=== PATIENT | male | born 1950 | race Caucasian/White ===

== ENCOUNTER 2025-03-07 20:02 | Observation (INO) ==
[2025-03-07 20:58] LABS: BASOPHILS % (AUTO) 0.3 %; EOSINOPHILS # (AUTO) 0.1 10^3/uL (0.0-0.7); EOSINOPHILS % (AUTO) 1.1 %; HGB - HEMOGLOBIN 11.3 g/dL (14.0-18.0); LYMPHOCYTES # (AUTO) 1.1 10^3/uL (1.5-3.5); LYMPHOCYTES % (AUTO) 14.3 %; MEAN CORPUSCULAR HGB CONC 34.2 g/dL (32.0-36.0); MEAN CORPUSCULAR VOLUME 93.5 fL (80.0-94.0); MEAN PLATELET VOLUME 10.2 fL (7.4-11.4); MONOCYTES # (AUTO) 0.6 10^3/uL (0.0-1.0); MONOCYTES % (AUTO) 7.4 %; NEUTROPHILS % (AUTO) 76.5 %; PLT - PLATELET COUNT 149 10^3/uL (130-450); RED BLOOD COUNT 3.53 10^6/uL (4.70-6.10); RED CELL DISTRIBUTION WIDTH 13.6 % (12.0-15.0); WHITE BLOOD COUNT 7.9 x10^3/uL (4.8-10.8)
[2025-03-07] MEDS: SODIUM CHLORIDE 0.9% 1,000 ML IV STA (21:01)
--- NOTE | 2025-03-07 21:01 | XRAY Report ---
PROCEDURE: XR Chest 1V INDICATIONS: chest pain TECHNIQUE: One view of the chest was acquired. COMPARISON: None. FINDINGS: Surgical changes and devices: None. Lungs and pleura: There is mild pulmonary vascular congestion. Blunting of left costophrenic angle is seen suggestive of small left pleural effusion with left basilar small infiltrates/atelectasis. Righ t lung is clear. No pneumothorax. Mediastinum: Mediastinal contours appear normal. Heart size is enlarged. Bones and chest wall: No suspicious bony lesions. Overlying soft tissues appear unremarkable. IMPRESSION: Cardiomegaly and mild congestion with small left pleural effusion and left basilar small infiltrate versus atelectasis. No pneumothorax. Reviewed by: Naseem Macdonald MD on 03/07/2025 9:00 PM PDT Approved by: Naseem Macdonald MD on 03/07/2025 9:00 PM PDT Station ID: [id number]
[2025-03-07 21:15] LABS: ALBUMIN 3.7 g/dL (3.2-5.5); ALBUMIN/GLOBULIN RATIO 1.9 (1.0-2.2); ALKALINE PHOSPHATASE 36 IU/L (42-121); ALT ALANINE AMINOTRANSFERASE 11 IU/L (10-60); AST ASPARTATE AMINOTRANSFERASE 17 IU/L (10-42); BILIRUBIN,TOTAL 1.2 mg/dL (0.2-1.0); BUN - BLOOD UREA NITROGEN 14 mg/dL (6-20); CARBON DIOXIDE - CO2 28 mmol/L (21-32); CHLORIDE 108 mmol/L (101-111); CREATININE 0.8 mg/dL (0.6-1.3); ETOH - ETHANOL < 10.0 mg/dL; GFR - MDRD 94 (>89); GLUCOSE 130 mg/dL (74-104); LIPASE 20 U/L (11-82); POTASSIUM 2.6 mmol/L (3.5-4.5); SODIUM 143 mmol/L (135-145); TOTAL PROTEIN 5.7 g/dL (6.4-8.9)
[2025-03-07 21:17] LABS: MAGNESIUM 1.7 mg/dL (1.7-2.3)
[2025-03-07] MEDS: ACETAMINOPHEN 325 MG TABLET PO STA (22:27)
[2025-03-07] MEDS: cefTRIAXone 1 GM VIAL IVP STA (22:32)
[2025-03-07] MEDS: AZITHROMYCIN INJ 500 MG in SODIUM CHLORIDE 0.9% 250 ML IV STA (22:33)
[2025-03-07] MEDS: POTASSIUM CHLORIDE 20 MEQ/15 ML UDC PO SCH (22:46)
[2025-03-08] MEDS: MAGNESIUM OXIDE 400 MG TABLET PO ONE (00:16)
[2025-03-08 01:30] LABS: B. PARAPERTUSSIS- RESP PCR PAN NOT DETECTED; B. PERTUSSIS- RESP PCR PANEL NOT DETECTED; C. PNEUMONIAE- RESP PCR PANEL NOT DETECTED; CORONAVIRUS 229E-RESP PCR NOT DETECTED; CORONAVIRUS HKU1-RESP PCR NOT DETECTED; CORONAVIRUS NL63-RESP PCR NOT DETECTED; CORONAVIRUS OC43-RESP PCR NOT DETECTED; HUMAN METAPNEUMOVIRUS NOT DETECTED; INFLUENZA A- RESP PCR PANEL NOT DETECTED; INFLUENZA B - RESP PCR PANEL NOT DETECTED; M. PNEUMONIAE- RESP PCR PANEL NOT DETECTED; PARAINFLUENZA VIRUS 1 NOT DETECTED; PARAINFLUENZA VIRUS 2 NOT DETECTED; PARAINFLUENZA VIRUS 4 NOT DETECTED; RHINOVIRUS/ENTEROVIRUS NOT DETECTED; RSV- RESP PCR PANEL NOT DETECTED; SARS-CoV-2 -RESP PCR PANEL NOT DETECTED
--- NOTE | 2025-03-08 02:02 | ED Physician Documentation ---
History of Present Illness Stated complaint Stated Complaint: WEAKNESS, FEVER, HX CA Chief complaint Chief Complaint: General Additonal information Additional information: 74-year-old male with known history of prostate cancer presents fever, fatigue. Past medical significant for prostate cancer, hypertension for which she takes carvedilol, hydrochlorothiazide, hypothyroidism. Reports fatigue, fever at home. Reports nonproductive cough. Denies headache, neck stiffness, blurred vision, double vision, chest pain, abdominal pain, nausea, vomiting, diarrhea, constipation. Yomi Coma Scale Assess Eye opening: Spontaneous Verbal response: Oriented Motor response: Obeys Commands Total score: 15 Review of Systems Status of ROS: 10 or more systems reviewed and unremarkable except as noted in history and below Constitutional Reports: Fatigue and Fever Respiratory Reports: Cough Endocrine Reports: Fatigue Meds/Allgy Allergies Allergies Allergy/AdvReac Type Severity Reaction Status Date / Time No Known Drug Allergies Allergy Verified 03/07/25 20:09 PFSH Active Problems All Active Problems (Updated 03/08/25 @ 02:28 by Omid Rojas MD) PNA (pneumonia) (Acute) Hypokalemia (Acute) Social History Social History Relationship: Do you feel safe in your home environment?: Yes Suffered physical, verbal, emotional, or financial abuse?: No POLST Patient has POLST: No Exam Exam Vital Signs: Vital Signs x48h Temp Pulse Resp BP Pulse Ox O2 Flow Rate 03/08/25 00:20 37 C 77 22 105/50 L 100 2 03/07/25 23:45 37 C 03/07/25 23:00 37.5 C 78 22 115/67 99 2 03/07/25 21:56 38 C H 03/07/25 21:41 78 22 146/64 H 100 2 03/07/25 20:09 36.5 C 62 16 128/67 92 Constitutional Somewhat ill-appearing, no acute distress. 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, no movement abnormality noted, no focal motor deficit noted and no sensory deficits noted Psychiatry mental status grossly normal Skin skin color normal Results Vitals Vitals: Vital Signs - 24 hr 03/07/25 20:09 03/07/25 21:41 03/07/25 21:56 Temperature 36.5 C 38 C H Temperature Source Oral Tympanic Pulse Rate 62 78 Respiratory Rate 16 22 Blood Pressure 128/67 146/64 H O2 Saturation 92 100 O2 Source Room air Nasal cannula If not protocol: Oxygen Flow, liters/minute 2 Pain Intensity 0 0 03/07/25 22:27 03/07/25 23:00 03/07/25 23:45 Temperature 37.5 C 37 C Temperature Source Tympanic Pulse Rate 78 Respiratory Rate 22 Blood Pressure 115/67 O2 Saturation 99 O2 Source Nasal cannula If not protocol: Oxygen Flow, liters/minute 2 Pain Intensity 2 0 03/08/25 00:20 Temperature 37 C Temperature Source Tympanic Pulse Rate 77 Respiratory Rate 22 Blood Pressure 105/50 L O2 Saturation 100 O2 Source Nasal cannula If not protocol: Oxygen Flow, liters/minute 2 Pain Intensity Oxygen O2 Source Nasal cannula EKG (time done) 2034: EKG releavant findings:: EKG personally interpreted by author of this note. Relevant findings are: 64 rate with sinus rhythm. Right bundle branch block morphology. Left axis deviation. No concordant ST segment elevations, concordant ST segment depressions or excessive discordance in any lead.No previous EKG available for comparison. Labs Labs: Laboratory Tests 03/07/25 03/08/25 03/08/25 20:39 00:25 01:30 WBC 7.9 RBC 3.53 L Hgb 11.3 L Hct 33.0 L MCV 93.5 MCH 32.0 H MCHC 34.2 RDW 13.6 Plt Count 149 MPV 10.2 Neut # (Auto) 6.0 Lymph # (Auto) 1.1 L Navarro # (Auto) 0.6 Eos # (Auto) 0.1 Baso # (Auto) 0.0 Absolute Nucleated RBC 0.00 Nucleated RBC % 0.0 Sodium 143 Potassium 2.6 L 2.5 L* Chloride 108 Carbon Dioxide 28 Anion Gap 7.0 BUN 14 Creatinine 0.8 Estimated GFR (MDRD) 94 Glucose 130 H Calcium 8.0 L Magnesium 1.7 Total Bilirubin 1.2 H AST 17 ALT 11 Alkaline Phosphatase 36 L Troponin I High Sens 19.0 Total Protein 5.7 L Albumin 3.7 Globulin 2.0 L Albumin/Globulin Ratio 1.9 Lipase 20 Urine Color Urine Clarity Urine pH Ur Specific Poth Urine Protein Urine Glucose (UA) Urine Ketones Urine Occult Blood Urine Nitrite Urine Bilirubin Urine Urobilinogen Ur Leukocyte Esterase Urine RBC Urine WBC Ur Squamous Epith Cells Urine Crystals Urine Bacteria Ur Microscopic Review Urine Culture Comments Nasal Adenovirus (PCR) NOT DETECTED Nasal B. parapertussis DNA (PCR) NOT DETECTED Nasal Coronavir 229E PCR NOT DETECTED Nasal Coronavir HKU1 PCR NOT DETECTED Nasal Coronavir NL63 PCR NOT DETECTED Nasal Coronavir OC43 PCR NOT DETECTED Nasal Enterovir/Rhinovir PCR NOT DETECTED Nasal Influenza B PCR NOT DETECTED Nasal Influenza A PCR NOT DETECTED Nasal Parainfluen 1 PCR NOT DETECTED Nasal Parainfluen 2 PCR NOT DETECTED Nasal Parainfluen 3 PCR NOT DETECTED Nasal Parainfluen 4 PCR NOT DETECTED Nasal RSV (PCR) NOT DETECTED Nasal B.pertussis DNA PCR NOT DETECTED Nasal C.pneumoniae (PCR) NOT DETECTED Sharif Human Metapneumo PCR NOT DETECTED Nasal M.pneumoniae (PCR) NOT DETECTED Nasal SARS-CoV-2 (PCR) NOT DETECTED Ethyl Alcohol < 10.0 03/08/25 02:34 WBC RBC Hgb Hct MCV MCH MCHC RDW Plt Count MPV Neut # (Auto) Lymph # (Auto) Navarro # (Auto) Eos # (Auto) Baso # (Auto) Absolute Nucleated RBC Nucleated RBC % Sodium Potassium Chloride Carbon Dioxide Anion Gap BUN Creatinine Estimated GFR (MDRD) Glucose Calcium Magnesium Total Bilirubin AST ALT Alkaline Phosphatase Troponin I High Sens Total Protein Albumin Globulin Albumin/Globulin Ratio Lipase Urine Color YELLOW Urine Clarity CLEAR Urine pH 6.0 Ur Specific Poth >=1.030 H Urine Protein 30 H Urine Glucose (UA) NEGATIVE Urine Ketones 15 H Urine Occult Blood MODERATE H Urine Nitrite NEGATIVE Urine Bilirubin NEGATIVE Urine Urobilinogen 2 H Ur Leukocyte Esterase NEGATIVE Urine RBC 11-25 H Urine WBC 0-3 Ur Squamous Epith Cells RARE Squamous Urine Crystals 3-5 Calcium Oxalate Urine Bacteria Rare Ur Microscopic Review INDICATED Urine Culture Comments NOT INDICATED Nasal Adenovirus (PCR) Nasal B. parapertussis DNA (PCR) Nasal Coronavir 229E PCR Nasal Coronavir HKU1 PCR Nasal Coronavir NL63 PCR Nasal Coronavir OC43 PCR Nasal Enterovir/Rhinovir PCR Nasal Influenza B PCR Nasal Influenza A PCR Nasal Parainfluen 1 PCR Nasal Parainfluen 2 PCR Nasal Parainfluen 3 PCR Nasal Parainfluen 4 PCR Nasal RSV (PCR) Nasal B.pertussis DNA PCR Nasal C.pneumoniae (PCR) Sharif Human Metapneumo PCR Nasal M.pneumoniae (PCR) Nasal SARS-CoV-2 (PCR) Ethyl Alcohol PD Medical Decision Making ED course Complexity details: reviewed results, re-evaluated patient, considered differential and d/w patient ED course: 74-year-old male presents chief complaint fever, fatigue. This is a Setting of known prostate cancer, hypothyroidism, hypertension on carvedilol and hydrochlorothiazide. Afebrile, hemodynamically stable on arrival. Somewhat ill-appearing on arrival. Clear aeration all lung oliver, benign abdominal exam. Initial labs did not demonstrate significant leukocytosis, hepatic or renal insufficiency but did have a significant hypokalemia. Patient denied any history nausea, vomiting or other history that would account for insensible fluid or electrolyte loss. While in the emergency department he did develop a fever and was given dose Tylenol. Chest x-ray with likely area infiltrate. He does endorse for nonproductive cough. He is given Rocephin, azithromycin. He is briefly placed on oxygen however this is easily titrated off. He is given oral potassium and magnesium for repletion. He is monitored carefully on telemetry. He passes an ambulatory trial. However repeat measurement of his potassium shows downtrend with potassium now 2.5. I have ordered for additional oral and IV potassium and IV magnesium. Care discussed with hospitalist service who graciously agreed to hospitalize for further evaluation and treatment. Discharge Plan Discharge Patient Disposition: [facility] DC/Xfer Clinical Impression: Hypokalemia, PNA (pneumonia) Print Language: Togolese
[2025-03-08] MEDS: POTASSIUM CHLORIDE 20 MEQ/15 ML UDC PO ONE (02:38)
[2025-03-08] MEDS: MAGNESIUM SULFATE 2 GRAM 2 GM/50 ML BAG IV ONE (02:39)
[2025-03-08] MEDS: POTASSIUM CHLORIDE INJ 40 MEQ in SODIUM CHLORIDE 0.9% 500 ML IV ONE (02:40)
[2025-03-08] MEDS: POTASSIUM CHLOR 10 MEQ/100 ML 10 MEQ/100 ML BAG IV SCH (02:41)
[2025-03-08 02:43] LABS: BILIRUBIN,URINE NEGATIVE (NEGATIVE); GLUCOSE, URINE (UA) NEGATIVE (NEGATIVE); KETONES,URINE (UA) 15 mg/dL (NEGATIVE); LEUKOCYTE ESTERASE, URINE NEGATIVE (NEGATIVE); NITRITE,URINE NEGATIVE (NEGATIVE); OCCULT BLOOD,URINE MODERATE (NEGATIVE); PROTEIN,URINE 30 mg/dL (NEGATIVE); UROBILINOGEN,URINE 2 E.U./dL (NORMAL)
[2025-03-08 02:44] LABS: CLARITY,URINE CLEAR (CLEAR)
[2025-03-08 02:51] LABS: BACTERIA,URINE Rare /HPF (None Seen); SQUAMOUS EPITHELIAL CELL,UR RARE Squamous (<= Few); WBC,URINE 0-3 /HPF (0-3)
[2025-03-08 02:52] LABS: CRYSTALS,URINE 3-5 Calcium Oxalate /LPF
[2025-03-08 02:53] LABS: AMPHETAMINE SCREEN,URINE NEGATIVE (NEGATIVE); BARBITURATE SCREEN,UR NEGATIVE (NEGATIVE); BENZODIAZEPINES SCREEN, URINE NEGATIVE (NEGATIVE); BUPRENORPHINE SCREEN, URINE NEGATIVE (NEGATIVE); COCAINE SCREEN URINE NEGATIVE (NEGATIVE); METHADONE SCREEN, URINE NEGATIVE (NEGATIVE); METHAMPHETAMINES SCREEN, URINE NEGATIVE (NEGATIVE); OPIATE SCREEN, URINE NEGATIVE (NEGATIVE); OXYCODONE SCREEN, URINE NEGATIVE (NEGATIVE); THC CANNABINOID SCREEN, URINE NEGATIVE (NEGATIVE); TRICYCLIC ANTIDEPRESSANT,URINE NEGATIVE (NEGATIVE)
[2025-03-08] MEDS ORDERED: SODIUM CHLORIDE FLUSH 0.9% 10 ML SYRINGE IVP PRN (03:35)
[2025-03-08] MEDS ORDERED: ONDANSETRON 4 MG/2 ML VIAL IVP PRN (03:35)
[2025-03-08] MEDS ORDERED: ACETAMINOPHEN 325 MG TABLET PO PRN (03:35)
--- NOTE | 2025-03-08 04:09 | HISTORY & PHYSICAL EXAMINATION ---
Chief Complaint Chief Complaint Chief Complaint: fatigue, fever History of Present Illness Admitted From Admitted From:: home History Obtained From Exam Limitations: telemedicine, technical difficulties with audio required use of chat box History of Present Illness HPI Comment/Other: Mr Perez is a 74 yo M with history of HTN, hypothyroidism, prostate cancer. Presents to the ER with complaints of fatigue and fever, onset of symptoms yesterday. Reports dry cough, denies sputum production. Denies nausea, vomiting. Denies sick contacts. Patient was briefly on supplemental O2 while in ER however this has since been weaned off. CXR shows left basilar infiiltrate, treated with IV antibiotics. Tm 38 in ER, treated with Tylenol. Review of Systems Status of ROS: 10 or more systems reviewed and unremarkable except as noted in history and below Constitutional Reports: Fatigue, Fever, Malaise, Weakness and Poor appetite Respiratory Reports: Cough; Denies: Sputum production or Wheezing Gastrointestinal Denies: Nausea or Vomiting Integumentary/Breast Denies: Rash or Itching Endocrine Reports: Fatigue Allergic/Immunologic Denies: Wheezing PFSH Active Problems All Active Problems (Updated 03/08/25 @ 02:28 by Omid Rojas MD) PNA (pneumonia) (Acute) Hypokalemia (Acute) Social History Social History Relationship: Do you feel safe in your home environment?: Yes Suffered physical, verbal, emotional, or financial abuse?: No POLST Patient has POLST: No Meds/Allgy Allergies Allergies Allergy/AdvReac Type Severity Reaction Status Date / Time No Known Drug Allergies Allergy Verified 03/07/25 20:09 Exam Exam Vital Signs: Vital Signs x48h Temp Pulse Resp BP Pulse Ox O2 Flow Rate 03/08/25 02:00 36.7 C 70 20 129/73 100 03/08/25 01:00 37.1 C 78 20 103/63 100 03/08/25 00:20 37 C 77 22 105/50 L 100 2 03/07/25 23:45 37 C 03/07/25 23:00 37.5 C 78 22 115/67 99 2 03/07/25 21:56 38 C H 03/07/25 21:41 78 22 146/64 H 100 2 03/07/25 20:09 36.5 C 62 16 128/67 92 Constitutional normal general appearance, no apparent distress, average body habitus, no limitations and alert HENMT normocephalic and head/scalp atraumatic Chest inspection of chest normal Respiratory normal respiratory effort Extremities normal to inspection Psychiatry mental status grossly normal, oriented x3, thought process normal and cooperative Skin skin color normal Conclusion/Plan Lab Results Lab results reviewed: Yes 03/07/25 20:39 03/08/25 01:30 Diagnostic Imaging Results Diagnostic Imaging Results Comments: CXR: IMPRESSION: Cardiomegaly and mild congestion with small left pleural effusion and left basilar small infiltrate versus atelectasis. No pneumothorax. Other Other Results/Comments: Assessment/Plan: Community acquired pneumonia -Left basilar infiltrate on CXR -Patient presents with fever, cough -O2 sats stable on RA -No elevated leukocytosis, normal respiratory effort at rest -Continue azithromycin/ceftriaxone - consider switch to PO and dc home pending clinical course -Supportive care, Mucinex, anti-tussive PRN -Admit for observation Hypokalemia -K supplementation ordered in ER - repeat labs ordered -Mag 1.7, received IV mag in ER -Trend labs Continue home medications pending med rec verification. DVT ppx Lovenox Full code Telemedicine Consult Details Provider Location & Consult Time List names and roles of persons who participated in consult:: patient, RN, MD Telemedicine provider location:: [place]
[2025-03-08] MEDS ORDERED: BENZONATATE 100 MG CAPSULE PO PRN (04:50)
[2025-03-08 07:22] LABS: CALCIUM 7.7 mg/dL (8.5-10.3); CREATININE 0.9 mg/dL (0.6-1.3); POTASSIUM 3.1 mmol/L (3.5-4.5)
[2025-03-08] MEDS: guaiFENesin 600 MG TABLET PO SCH (09:31)
[2025-03-08] MEDS: POTASSIUM CHLORIDE 20 MEQ TABLET PO ONE (09:31)
[2025-03-08] MEDS: ENOXAPARIN 40 MG/0.4 ML SYRINGE SUBQ SCH (09:31)
[2025-03-08] MEDS: SODIUM CHLORIDE FLUSH 0.9% 10 ML SYRINGE IVP SCH (09:32)
--- NOTE | 2025-03-08 12:47 | PHARMACY PROGRESS NOTE ---
Best Possible Medication History Admit Date and Time: 03/08/25 0335 Home Medications Medication Instructions Recorded Confirmed Type abiraterone 250 mg tablet 1,000 mg PO DAILY 03/08/25 03/08/25 History allopurinol 100 mg tablet 300 mg PO DAILY 03/08/25 03/08/25 History apixaban 5 mg tablet 5 mg PO BID 03/08/25 03/08/25 History carvedilol 12.5 mg tablet 12.5 mg PO BID 03/08/25 03/08/25 History cholecalciferol (vitamin D3) 25 25 mcg PO DAILY 03/08/25 03/08/25 History mcg (1,000 unit) capsule hydrochlorothiazide 12.5 mg tablet 12.5 mg PO DAILY 03/08/25 03/08/25 History levothyroxine 50 mcg tablet 50 mcg PO DAILY 03/08/25 03/08/25 History metformin 500 mg tablet,extended 500 mg PO DAILY 03/08/25 03/08/25 History release 24 hr cznpybqs-pn-fvyog 300 mcg-K 60 1 tab PO DAILY 03/08/25 03/08/25 History mcg-lycop 600 mcg-lutein 300 mcg tablet (Centrum Silver Men) omega 0-icd-hgt-fish oil 1,200 mg 1 cap PO DAILY 03/08/25 03/08/25 History (144 mg-216 mg) capsule (Fish Oil) prednisone 5 mg tablet 5 mg PO DAILY 03/08/25 03/08/25 History simvastatin 10 mg tablet 10 mg PO DAILY 03/08/25 03/08/25 History Processed by: Pharmacy Medications reviewed in ED?: No Medication History completed: Yes Patient Interview: Completed Secondary Source(s): Insurance records [facility] Statement: Per [facility]. As the person ultimately responsible for medication therapy, providers are able to order a medication from an existing home medication list in [facility] via the "Reconcile Routine" prior to Confirmation of that medication by ground crewman mission support. Such practice is discouraged except when the physician, in their clinical judgment, deems that a medical need exists for a medication without regard to previous use.
[2025-03-08] MEDS: metFORMIN 500 MG TABLET PO SCH (17:44)
[2025-03-08 17:49] VITALS: BP 137/64; TEMP 97.3; O2SAT 94
[2025-03-08] MEDS ORDERED: AZITHROMYCIN 250 MG TABLET PO SCH (19:00)
[2025-03-08] MEDS ORDERED: cefTRIAXone 1 GM in SODIUM CHLORIDE 0.9% MINIBAG 100 ML IV SCH (20:00)
[2025-03-08] MEDS ORDERED: PRAVASTATIN 10 MG TABLET PO SCH (21:00)
[2025-03-08] MEDS ORDERED: carvediloL 12.5 MG TABLET PO SCH (21:00)
[2025-03-09] MEDS ORDERED: MULTIVITAMIN W/MINERALS TABLET PO SCH (08:00)
[2025-03-09] MEDS ORDERED: allopurinoL 100 MG TABLET PO SCH (09:00)
[2025-03-09] MEDS ORDERED: ABIRATERONE 250 MG PO SCH (09:00)
[2025-03-09] MEDS ORDERED: OMEGA-3 ACID ETHYL ESTERS 1 GM CAPSULE PO SCH (09:00)
[2025-03-09] MEDS ORDERED: CHOLECALCIFEROL 25 MCG TABLET PO SCH (09:00)
[2025-03-09] MEDS ORDERED: predniSONE 5 MG TABLET PO SCH (09:00)
[2025-03-09] MEDS ORDERED: LEVOTHYROXINE 25 MCG TABLET PO SCH (09:00)
--- NOTE | 2025-03-10 18:22 | Discharge Summary ---
Discharge Summary Admit Date: 03/08/25 Discharge Date: 03/08/25 Discharging Provider: Anatoly Daugherty MD DIAGNOSES Admission Diagnoses: 1. community acquired bacterial pneumonia 2. hypokalemia Discharge Diagnoses with Status of Each Condition: 1. community acquired bacterial pneumonia 2. hypokalemia 3. HTN 4. stage 4 prostate cancer 5. hypothyroidism 6. afib HPI History of Present Illness: 74 yo M with history of HTN, hypothyroidism, prostate cancer. Presents to the ER with complaints of fatigue and fever, onset of symptoms yesterday. Reports dry cough, denies sputum production. Denies nausea, vomiting. Denies sick contacts. Patient was briefly on supplemental O2 while in ER however this has since been weaned off. CXR shows left basilar infiiltrate, treated with IV antibiotics. Tm 38 in ER, treated with Tylenol. HOSPITAL COURSE Hospital Course: 1. community acquired bacterial pneumonia: CXR revealed L basilar infiltrate. He had a normal wbc of 7.9, not hypoxic. The pt was treated with ceftriaxone and azithromycin. His symptoms improved quickly over first day of admission. He was able to tolerate po intake and walked without problems. Engergy and fatigue improved. The pt was discharged to complete a 5 day course of cefpodoxime and 3 day course of azithromcyin. 2. hypokalemia: K 2.5 on arrival. Likely due to poor po intake and vomiting. HCTZ also contributing. He was given KCl replacement and repeat value was 3.1. Expect potassium will continue to normalize with improved po intake. He was prescribed an oral potassium supplement for 3 days on discharge. Stopped HCTZ and started amlodipine. Would repeat BMP in 5-7 days to check potassium. 3. HTN: As noted above, HCTZ was stopped due to severe hypokalemia and pt was started on amlodipine. He was ontinued on his home carvedilol. 4. stage 4 prostate cancer: The pt is currently undergoing treatment with lupron and zometa q 3 months, daily abiraterone and prednisone. I discussed the case with his oncologist, Dr. Roa at [facility]. The pt received an infusion with his scheduled lupron and zometa the day prior to onset of symptoms. Dr. Roa does not believe these medications contributed to his acute illness. Updated at bedside on day of discharge. They will have close f/u with Dr. Roa and with their PMD in [place]. ALLERGIES Allergies Allergy/AdvReac Type Severity Reaction Status Date / Time No Known Drug Allergies Allergy Verified 03/07/25 20:09 MEDICATIONS Ambulatory Orders Medication Instructions Recorded Confirmed abiraterone 250 mg tablet 1,000 mg PO DAILY 03/08/25 03/08/25 allopurinol 100 mg tablet 300 mg PO DAILY 03/08/25 03/08/25 amlodipine 5 mg tablet 5 mg PO DAILY #30 tabs 03/08/25 apixaban 5 mg tablet 5 mg PO BID 03/08/25 03/08/25 azithromycin 250 mg tablet 500 mg (2 x 250 mg) PO DAILY #2 03/08/25 tabs carvedilol 12.5 mg tablet 12.5 mg PO BID 03/08/25 03/08/25 cefpodoxime 200 mg tablet 200 mg PO BID 4 days #8 tabs 03/08/25 cholecalciferol (vitamin D3) 25 25 mcg PO DAILY 03/08/25 03/08/25 mcg (1,000 unit) capsule levothyroxine 50 mcg tablet 50 mcg PO DAILY 03/08/25 03/08/25 metformin 500 mg tablet,extended 500 mg PO DAILY 03/08/25 03/08/25 release 24 hr qemgzhcp-so-exihp 300 mcg-K 60 1 tab PO DAILY 03/08/25 03/08/25 mcg-lycop 600 mcg-lutein 300 mcg tablet (Centrum Silver Men) omega 1-abt-vqe-fish oil 1,200 mg 1 cap PO DAILY 03/08/25 03/08/25 (144 mg-216 mg) capsule (Fish Oil) potassium chloride 20 mEq 20 meq PO DAILY #3 tabs 03/08/25 tablet,extended release (K-Tab) prednisone 5 mg tablet 5 mg PO DAILY 03/08/25 03/08/25 simvastatin 10 mg tablet 10 mg PO DAILY 03/08/25 03/08/25 PHYSICAL EXAM AT DISCHARGE Vital Signs: afebrile, vital signs reviewed. older man lying in bed, NAD, sclera anicteric, MMM Lungs: L basilar crackles, nonlabored RRR, S1S2, no edema abd soft, NT, ND, BS+ AAOx3, CN 2-12 intact, strength 5/5 UE and LE bilat, normal gait LABS 03/07/25 20:39 03/08/25 06:55 DIAGNOSTIC IMAGING Diagnostic Imaging Results Comments: CXR, 03/07/25: FINDINGS: Surgical changes and devices: None. Lungs and pleura: There is mild pulmonary vascular congestion. Blunting of left costophrenic angle is seen suggestive of small left pleural effusion with left basilar small infiltrates/atelectasis. Right lung is clear. No pneumothorax. Mediastinum: Mediastinal contours appear normal. Heart size is enlarged. Bones and chest wall: No suspicious bony lesions. Overlying soft tissues appear unremarkable. IMPRESSION: Cardiomegaly and mild congestion with small left pleural effusion and left basilar small infiltrate versus atelectasis. No pneumothorax. TIME SPENT Time Spent in Discharge (Minutes): 35 Discharge Plan Discharge Patient Disposition: Home, Self Care Condition: Stable Medically Cleared Date:: 03/08/25 Prescriptions: New azithromycin 250 mg Tablet 500 mg PO DAILY Qty: 2 0RF cefpodoxime 200 mg tablet 200 mg PO BID 4 Days Qty: 8 0RF Rx Instructions: must administer with a meal/food potassium chloride [K-Tab] 20 mEq tablet extended release 20 meq PO DAILY Qty: 3 0RF amlodipine 5 mg tablet 5 mg PO DAILY Qty: 30 0RF Continued carvedilol 12.5 mg tablet 12.5 mg PO BID simvastatin 10 mg tablet 10 mg PO DAILY prednisone 5 mg tablet 5 mg PO DAILY Patient Comments: Using with abiraterone, which patient says is on hold. allopurinol 100 mg tablet 300 mg PO DAILY levothyroxine 50 mcg tablet 50 mcg PO DAILY metformin 500 mg tablet extended release 24 hr 500 mg PO DAILY Rx Instructions: with food abiraterone 250 mg tablet 1,000 mg PO DAILY Patient Comments: Patient says provider wants him to hold. apixaban 5 mg tablet 5 mg PO BID Centrum Silver Men [id number] mcg tablet 1 tab PO DAILY omega 0-lhb-lim-fish oil [Fish Oil] 1,200 (144-216) mg capsule 1 cap PO DAILY cholecalciferol (vitamin D3) 25 mcg (1,000 unit) capsule 25 mcg PO DAILY Discontinued hydrochlorothiazide 12.5 mg tablet 12.5 mg PO DAILY Diet: Cardiac Interventions: Belongings Inventory Last Done: 03/08/25 04:32 Plan of Treatment: Contact your primary care provider or return to the hospital if you have worsening shortness of breath, fever, chest pain, severe fatigue, weakness, or for any other concerns. We have changed your blood pressure medicines due to low potassium level. Stop taking hydrochlorothiazide and start amlodipine. You have also been prescribed a potassium supplement for 3 days. Please follow up with your primary care provider within 1 week. Repeat labs can be done at that time to follow potassium level. Print Language: Czech Patient Instructions: Pneumonia Stand Alone Forms: PCP List Follow-up Care: Primary Care [Other] (Schedule an appointment with your primary care provider for within 1 week. )
== END 2025-03-08 18:47 | disposition home or self-care (01) ==
LOC: MS2 20:02 → ED 20:02 → MS2 03-08 04:23
PROVIDERS: ADMIT Student in an Organized Health Care Education/Training Program; ATTEND Student in an Organized Health Care Education/Training Program
DX: I10 Essential (primary) hypertension; I48.91 Unspecified atrial fibrillation; J15.9 Unspecified bacterial pneumonia; I45.10 Unspecified right bundle-branch block; E87.6 Hypokalemia; C61 Malignant neoplasm of prostate; E03.9 Hypothyroidism, unspecified